=== PATIENT | female | born 1985 | race Two or more races ===

== ENCOUNTER 2025-02-14 23:13 | Emergency (ER) | payer MEDICAID, SELFPAY ==
[2025-02-14 23:14] VITALS: BMI 44.9
--- NOTE | 2025-02-14 23:17 | EKG_ITS ---
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
[2025-02-14 23:24] VITALS: BP 172/111; BP 174/108; PULSE 78; RESP 18; TEMP 36.8; O2SAT 99
--- NOTE | 2025-02-15 00:08 | XR_ITS ---
Examination: CT brain head without contrast. 2-D sagittal coronal reconstructions Date and time of exam:February,, 0025 hrs. Indications: Onset dizziness headaches today. 02/15/2025 CTDI: vol (mGy):52.70 DLP: (mGycm):1001 Technique: Multiple CT axial sections of the brain have been obtained, 5 mm slice thickness. Contrast has not been administered. 2-D sagittal, coronal reconstructions have been obtained Low dose protocols were performed. One or more of the following dose reduction techniques were used; automated exposure control, adjustment of the mA and/or KV according to patient size, use of iterative reconstruction technique. Findings: No significant ventricular enlargement. Intra-axial or extra-axial hemorrhage density is not seen. No mass effect or midline shift Basal cisterns are not remarkable. Fourth ventricle is midline. Cranial vault intact. Impression: Negative for acute hemorrhage, mass effect or midline shift Advise clinical correlation follow-up accordingly
--- NOTE | 2025-02-15 00:08 | PD.EDRME ---
Rapid Medical Screening Exam RME Arrival date/time: 02/14/25 23:13 This is a case of 39-year-old female with no medical history came into the emergency room due to headache and dizziness for 3 days worsening of the symptoms this patient decided to start consult here in the emergency room Chief Complaint: Dizziness Time Seen by Provider: 02/15/25 00:06 Vital signs: Vital Signs Temperature 98.3 F 02/14/25 23:24 Pulse Rate 78 02/14/25 23:24 Respiratory Rate 18 02/14/25 23:24 Blood Pressure 174/108 H 02/14/25 23:24 Pulse Oximetry (%) 99 02/14/25 23:24 Oxygen Delivery Method Room Air 02/14/25 23:24
[2025-02-15 00:44] VITALS: BP 158/95; BP 171/106; PULSE 68; RESP 18; TEMP 36.9; O2SAT 100
[2025-02-15 01:04] LABS: Collection Type, Urine Clean Catch
--- NOTE | 2025-02-15 01:13 | PRELIM_ITS ---
CT scan of the head without intravenous contrast (axial sections with sagittal and coronal reformats). February 15, 2025 at 0025 hours. Clinical History: Headache. Comparison: No prior study is available for comparison. Findings: There is no evidence of intracranial hemorrhage, mass effect or midline shift. The ventricles and CSF spaces are unremarkable. The calvarium is unremarkable. The mastoid air cells and the visualized paranasal sinuses are clear. Impression: No evidence of intracranial hemorrhage, mass effect or midline shift. Suggest clinical correlation and follow up accordingly. Report Electronically Signed By: Fernando Yanez 02/15/2025 1:12:19 AM [EST]
[2025-02-15 01:14] LABS: HCG Qualitative,Urine Negative
--- NOTE | 2025-02-15 01:17 | PD.EDDIZZY ---
ED Dizzyness RME/HPI General Chief Complaint: Dizziness Stated Complaint: DIZZINESS Time Seen by Provider: 02/15/25 00:06 Arrival date/time: 02/14/25 23:13 RME / HPI RME / HPI Narrative: 02/14/25 23:13 This is a case of 39-year-old female with no medical history came into the emergency room due to headache and dizziness for 3 days worsening of the symptoms this patient decided to start consult here in the emergency room DR. BUNCH MAIN ED EVALUATION: 39 y/o female with Hx of HTN and Anemia presents to ED c/o dizziness with temporal and frontal headache x just TUNA [employer]. Patient takes Lisinopril 20 mg for blood pressure. Patent does not work outside in the heat as she works as a [employer]OR [employer]. Related Data Home Medications ?Medication ?Instructions ?Recorded ?Confirmed hydroxyzine HCl 25 mg tablet 25 mg PO TID PRN Anxiety 12/26/18 12/26/18 sertraline 100 mg tablet 100 mg PO QDAY 12/26/18 12/26/18 Allergies Allergy/AdvReac Type Severity Reaction Status Date / Time tramadol AdvReac Mild SHAKEY AND Verified 02/14/25 23:14 [place]MEN[place]A Review of Systems Review of Systems Systems Reviewed: All systems reviewed, normal except as documented Past Medical History Past Medical History CARDIAC: Positive Hypertension HEMATOLOGIC: Positive Anemia Surgical History SURGICAL: Positive of Shoulder Sx (left rotator cuff) OTHER SURGICAL HX: left ovarian cyst/fallopian tube removed ED Exam Narrative Physical exam: Generally the patient is alert oriented and in no obvious distress, head is normocephalic atraumatic, eyes pupils round reactive to light without vertical nystagmus, neck showed no bruits no nuchal rigidity, heart regular rate and rhythm, lungs clear to auscultation equal bilaterally, abdomen soft bowel sounds present nondistended nontender neurologic exam no focal motor or sensory deficits cranial nerves II through XII grossly intact and no ataxia Course Quality Measures none Orders Category Date Time Status EKG (ED ONLY) *Do not use* NOW Care 02/14/25 23:[address] head/brain wo con Stat Exams 02/15/25 00:08 Taken EKG (ED Only) Stat Exams 02/14/25 23:17 Draft CBC Stat Lab 02/15/25 01:12 Completed Comprehensive Metabolic Panel Stat Lab 02/15/25 01:12 Received HCG Qualitative,Urine Stat Lab 02/15/25 01:02 Completed Urinalysis Stat Lab 02/15/25 01:02 Completed Vital Signs Vital signs: Vital Signs Temperature 98.3 F 02/14/25 23:24 Pulse Rate 78 02/14/25 23:24 Respiratory Rate 18 02/14/25 23:24 Blood Pressure 174/108 H 02/14/25 23:24 Pulse Oximetry (%) 99 02/14/25 23:24 Oxygen Delivery Method Room Air 02/14/25 23:24 Dizziness MDM Narrative MDM Narrative:: Scribe Attestation: I, Nellie Lopez, am scribing for and in the presence of Dr. Bunch. Provider Notation: Although this document has been carefully reviewed, there may still be some phonetic and other typographical errors. These errors are purely grammatical due to imperfections in the software program and should not be construed in any way to compromise the substance of the patient's medical care during this visit. Differential diagnosis, hypertension, vertigo, electrolyte abnormality, anemia, , infection EKG done at 11:19 PM shows normal sinus rhythm at a rate of 77 without ischemic change or ectopy. Hemoglobin is 11. is negative. Urine shows no evidence of infection. CAT scan of the brain ordered prior to my evaluation showed no evidence of acute abnormality. Patient has a history of hypertension. She is slightly hypertensive here in the emergency room with a blood pressure during my evaluation of 163/93. She takes lisinopril 20 mg once a day and occasionally forgets to take it. Patient will be discharged in stable condition. I think the dizziness and headache may be due to hypertension. She does have primary care follow-up. She must take her medications as prescribed. Return to ER as needed or if condition worsens. I interpreted all labs. Patient data External records reviewed:: [facility] previous records (Reviewed prior ED records from 12/26/18. Patient was seen for Dizziness.) Clinical information provided by:: patient Social determinants that could affect healthcare access:: none Patient has the following chronic illnesses:: HTN, Anemia How is presenting disease/condition affected by chronic disease/condition?: exacerbated by Evaluation data The following diagnostics were reviewed and interpreted by me:: lab results, radiology exam(s) and EKG tracing(s) Lab and/or radiology exams considered but not ordered:: None Interpretation Summary: RADIOLOGY Head/Brain CT: Findings: There is no evidence of intracranial hemorrhage, mass effect or midline shift. The ventricles and CSF spaces are unremarkable. The calvarium is unremarkable. The mastoid air cells and the visualized paranasal sinuses are clear. Impression: No evidence of intracranial hemorrhage, mass effect or midline shift. Suggest clinical correlation and follow up accordingly. Medications / Prescriptions Medications or Prescriptions considered but not ordered:: None Medication administrations:: See above if any Consultations Consultation(s) initiated? (list below): No Diagnosis Dizziness Differential Diagnosis: adverse reaction to drug, benign paroxysmal positional vertigo, orthostatic hypotension, vertebral basilar insufficiency, cerebrovascular accident, acute vestibular neuronitis and transient cerebral ischemia Most likely diagnosis given after review of the tests above:: none Admission Indicated Admission indicated?: not indicated Explain why admission is indicated or not indicated:: Patient does not meet admission criteria Admission Request Was there a request for admission?: No Disposition Plan Disposition Plan: Discharge Discharge Attestation Discharge Attestation: The patient and all family members were given an opportunity to ask questions and understood the discharge instructions. Discharge instructions specifically effects, indications for sooner follow up or return to the emergency department, and the expected course of current diagnosis. Patient condition: Stable Discharge Plan Plan Patient Disposition: HOME (Self Care) Prescriptions/Referrals Prescriptions/Med Rec: No Action sertraline 100 mg Tablet 100 mg PO QDAY hydroxyzine HCl 25 mg Tablet 25 mg PO TID PRN (Reason: Anxiety) Referrals: No Primary/Family,Physician [Primary Care Provider] - In 1 week Problem List Clinical Impression: Dizziness, Cephalalgia, Hypertension Patient/Caregiver Discharge Instructions Education Materials: ED High Blood Pressure ... Additional Instructions: Take all of your medication as prescribed. Follow-up with your doctor as needed for further treatment and evaluation. Print Language: Iraqi Stand Alone Forms: Avril Award Info., Patient Portal Info Letter
[2025-02-15 01:18] LABS: Basophils # (Auto) 0.1 Thou/mm3 (0.0-0.2); Basophils % (Auto) 1 % (0-2.5); Eosinophils # (Auto) 0.2 Thou/mm3 (0.0-0.5); Eosinophils % (Auto) 1 % (0-10); Hematocrit 36.3 % (36.0-46.0); Hemoglobin 11.2 g/dL (12.0-16.0); Immature Granulocytes Auto 0.07 Thou/mm3 (0.00-0.00); Lymphocytes # (Auto) 2.7 Thou/mm3 (1.0-4.8); Lymphocytes % (Auto) 22 % (10-50); Mean Corpuscular HGB Conc 30.9 g/dl (31.0-37.0); Mean Corpuscular Hemoglobin 26.6 pg (25.0-35.0); Mean Corpuscular Volume 86 fL (80-100); Monocytes # (Auto) 0.6 Thou/mm3 (0.0-0.8); Monocytes % (Auto) 5 % (0-12); Neutrophils # (Auto) 8.8 Thou/mm3 (1.8-7.7); Neutrophils % (Auto) 71 % (37-80); Nucleated Red Blood Cell # 0.00 Thou/mm3 (0.00-0.00); Nucleated Red Blood Cell % 0 /100 WBC (0); Platelet Count 280 Thou/mm3 (140-440); RDW Standard Deviation 47.4 fL (36.4-46.3); Red Blood Count 4.21 Miln/mm3 (4.00-5.20); White Blood Count 12.4 Thou/mm3 (3.6-11.0)
[2025-02-15 01:27] LABS: Bilirubin,Urine Negative (Negative); Blood,Urine 3+ (Negative); Clarity,Urine Clear (Clear/Hazy); Color,Urine Colorless (Lt Yel-Yel); Glucose, Urine Negative (Negative); Ketones,Urine Negative (Negative); Leukocyte Esterase,Urine Positive (Negative); Nitrite,Urine Negative (Negative); PH,Urine 6.5 (5.0-7.0); Protein,Urine Negative (Neg - Trace); RBC,Urine 396 /hpf (0-3); Specific Gravity,Urine 1.009 (1.001-1.035); Squamous Epithelial Cell,Urine 2 /hpf (0-5); Urobilinogen,Urine Negative mg/dL (0.0-1.0); WBC,Urine 4 /hpf (0-5)
[2025-02-15 01:54] VITALS: BP 135/95; PULSE 64; RESP 18; TEMP 36.6; O2SAT 100
[2025-02-15 01:58] LABS: Alanine Aminotransferase 10 U/L (10-49); Albumin, Serum 4.2 gm/dL (3.5-5.0); Albumin/Globulin Ratio 1.9 (1.2-2.2); Alkaline Phosphatase 104 U/L (46-116); Anion Gap 10 (7-16); Aspartate Amino Transferase 17 U/L (0-34); BUN/Creatinine Ratio 18 Ratio (12-20); Bilirubin,Total 0.2 mg/dL (0.3-1.2); Blood Urea Nitrogen 11 mg/dL (9-23); Calcium 9.0 mg/dL (8.3-10.6); Calcium (Corrected) 9.0 mg/dL (8.5-10.1); Carbon Dioxide 28.1 mMol/L (20.0-31.0); Chloride 104 mMol/L (98-107); Creatinine (Component) 0.6 mg/dL (0.6-1.3); Estimated Creatinine Clearance 139.9 mL/min (>60); Globulin 2.2 gm/dL (2.3-3.5); Glucose 95 mg/dL (74-106); Osmolality,Calculated 282 (275-295); Potassium 4.0 mMol/L (3.4-5.1); Sodium 142 mMol/L (136-145); Total Protein 6.4 gm/dL (5.7-8.2); eGFR > 60 See Note
== END 2025-02-15 01:56 | disposition home or self-care (01) ==
PROVIDERS: Nurse Practitioner Family; Emergency Provider Emergency Medicine
DX: R42 Dizziness and giddiness (principal); R51.9 Headache, unspecified; I10 Essential (primary) hypertension
CPT/HCPCS: 36415; 70450; 80053; 81001; 81025; 85025; 93005; 99283